=== PATIENT | male | born 1990 | race Caucasian/White ===

== ENCOUNTER 2017-12-23 14:51 | Emergency (ER) | payer OTHER ==
[~2017-12-23] VITALS: Ht 185.4 cm; Wt 70.3 kg
[2017-12-23 14:58] VITALS: BP 120/77
[2017-12-23] MEDS ORDERED: TDAP [DIPH/PERTUSSIS/TET] 0.5 ML VIAL IM ONE ×2 (15:46→16:00)
== END 2017-12-23 16:19 | disposition home or self-care (01) ==
LOC: ER 14:54
DX: S61.210A Laceration without foreign body of right index finger without damage to nail, initial encounter (principal); W45.8XXA Other foreign body or object entering through skin, initial encounter; Y93.89 Activity, other specified; Y92.89 Other specified places as the place of occurrence of the external cause; Y99.8 Other external cause status
CPT/HCPCS: 90715; A4606; A6403; Z7610

== ENCOUNTER 2018-09-23 12:03 | Emergency (ER) | payer OTHER ==
[~2018-09-23] VITALS: Ht 185.4 cm; Wt 72.6 kg
--- NOTE | 2018-09-23 12:05 | NUR ---
PATIENT STATES ANKLE PAIN AFTER FALLING AND TWISTING ANKLE WHILE RUNNING 3 DAYS AGO. SKIN INTACT. SWELLING AND BRUISING NOTED TO LATERAL ANKLE
--- NOTE | 2018-09-23 12:10 | NUR ---
[facility] AT BEDSIDE FOR EVAL
[2018-09-23] MEDS ORDERED: IBUPROFEN 600 MG TABLET PO ONE ×2 (12:22→12:30)
[2018-09-23 13:01] VITALS: BP 129/82
--- NOTE | 2018-09-23 13:15 | NUR ---
Patient discharged to home in stable condition. Written and verbal after care instructions given. Patient verbalizes understanding of instruction. PT EDUCATED ON RX AND F/U INFORMATION. NWB ON LEFT LOWER EXTREMITY.
== END 2018-09-23 13:15 | disposition home or self-care (01) ==
LOC: ER 12:11
DX: S93.492A Sprain of other ligament of left ankle, initial encounter (principal); X50.9XXA Other and unspecified overexertion or strenuous movements or postures, initial encounter; Y93.39 Activity, other involving climbing, rappelling and jumping off; Y92.89 Other specified places as the place of occurrence of the external cause; Y99.8 Other external cause status
CPT/HCPCS: 73610; 99283; A4606